=== PATIENT | male | born 1940 | race Two or more races ===

== ENCOUNTER 2017-08-07 10:10 | Outpatient (CLI) | payer MEDICARE, MEDICAID | END 2017-08-07 23:59 | disposition home or self-care (01) | LOC: WOU 10:10 | PROVIDERS: ATTEND Specialist | DX: L03.116 Cellulitis of left lower limb (principal); Z87.891 Personal history of nicotine dependence; Z96.652 Presence of left artificial knee joint; Z85.828 Personal history of other malignant neoplasm of skin; M19.90 Unspecified osteoarthritis, unspecified site | CPT/HCPCS: A6402; G0463 ==